=== PATIENT | female | born 1995 | race Caucasian/White ===

== ENCOUNTER 2017-02-04 19:56 | Emergency (ER) | payer OTHER ==
--- NOTE | ~2017-02-04 | CT4 ---
[facility] A Service of [facility] RADIOLOGY TEXT RESULTS PATIENT: TU PATINO LOCATION: SED : [birth year] UNIT #: [id number] AGE: [address]: MANGO WHYTE SEX: F ORDER DR: [id number] [place] [id number] E MR#: [id number] Acc #: [id number] NAME: TU PATINO. : 1995 SEX: F STUDY DATE/TIME: 02/04/2017 UNIT: SED ROOM: STUDY DESCRIPTION: CT Abd and Pelv Wo Cont Attending Physician: Mango Whyte Ordering Physician: Mnago Whyte Primary Care Physician: Primary Care Physician No MEDICAL IMAGING REPORT This report is preliminary unless electronic signature is present. EXAM Abdomen and pelvis CT 02/04 at 22:20 hours INDICATIONS Abnormal urinalysis results today with microscopic hematuria. Vaginal bleeding with low back and pelvic pain since 9 o'clock this morning. TECHNIQUE Axial noncontrast images were obtained through the abdomen and pelvis. Multiplanar reformats were obtained. Comparison is made with 07/10/2016. The CT exam was performed with one or more of the following radiation dose reduction techniques: automatic exposure control, adjustment of mA and/or kV according to patient size, and iterative reconstruction. FINDINGS Abdomen: Lung bases are clear. The gallbladder is contracted but otherwise unremarkable. No renal or ureteral stones are seen. There is no hydronephrosis. The unenhanced solid organs are normal. The unopacified GI tract is normal. No free fluid is seen. Pelvis: There are no lower ureteral stones. The bladder is normal. The appendix is surgically absent. The unopacified GI tract is otherwise normal. There are bilateral ovarian cyst. The one on the left measures 3.1 cm. The one on the right measures 2.0 cm. No free fluid. IMPRESSION: 1. Appendectomy, otherwise normal unopacified GI tract. 2. No renal or ureteral stones. No hydronephrosis. 3. Bilateral ovarian cysts, measuring 3.1 cm on the left and 2.0 cm on the right. [facility] A Service of [facility] RADIOLOGY TEXT RESULTS PATIENT: TU PATINO [place] [facility] [place] [birth year] UNIT #: [id number] AGE: [address]: MANGO WHYTE SEX: F ORDER DR: Dictated by... Maxim Fitzpatrick Jr., M.D. THIS IS AN ELECTRONICALLY VERIFIED REPORT Maxim Fitzpatrick Jr., M.D. at 02/05/2017 9:22 PM JOSR/salina TD: 02/05/2017 07:04 JOB #: [id number] MEDICAL IMAGING REPORT Page 1 of 1
[~2017-02-04 19:56] MED LIST: ADVIL200 M1; ALBUTEROL 0.5ML INH; IMITREX25 MG; KEFLEX500 MG PO; MED FOR ECZEMA; MOTRIN600 M2 PO; NO MEDICATIONS; PREDNISONE PO; PRILOSEC; STERAPRED5 MG/DOSE1; TYLENOL #3 PO; ZOFRAN; ZOFRANODT PO; ZOLOFT50 MG PO; ZYRTEC PO; ZYRTEC10 M1 PO
[2017-02-04] MEDS ORDERED: NO MEDICATIONS (20:13)
[2017-02-04 21:13] LABS: BASOPHIL# 0.1 X10e3 (0-0.3); BASOPHIL% 0.6 % (0-2.5); DIFF IND NO; EOSINOPHIL# 0.3 X10e3 (0-0.7); EOSINOPHIL% 3.1 % (0.0-7.0); HEMATOCRIT 44.1 % (35.0-45.0); LYMPHOCYTE# 2.7 X10e3 (1.0-3.5); LYMPHOCYTE% 30.2 % (17.0-45.0); MEAN CELL VOLUME 88.5 FL (83-96); MEAN CORPUSCULAR HGB CONC 33.9 g/dL (30-36); MONOCYTE# 0.8 X10e3 (0-1.0); MONOCYTE% 8.5 % (3.0-12.0); NEUTROPHIL# 5.2 X10e3 (1.5-7.1); NEUTROPHIL% 57.6 % (40-75); PLATELET COUNT 307 X10e3 (140-420); RED BLOOD COUNT 4.98 X10e (3.90-5.30); RED CELL DISTRIBUTION WIDTH 12.8 % (11.0-15.5)
[2017-02-04 21:25] LABS: URINE SOURCE CLEAN CATCH
[2017-02-04 21:27] LABS: URINE APPEARANCE SL CLOUDY; URINE BILIRUBIN NEG (NEG); URINE BLOOD 3+ (NEG); URINE COLOR RED; URINE GLUCOSE NEG (NORM); URINE KETONE NEG (NEG); URINE LEUKOCYTE ESTERASE NEG (NEG); URINE NITRATE NEG (NEG); URINE PROTEIN TRACE (NEG); URINE SPECIFIC GRAVITY 1.025 (1.003-1.035)
[2017-02-04 21:31] LABS: BUN/CREATININE RATIO 18.75; CALCIUM SERUM 9.2 mg/dL (8.4-10.2); CREATININE SERUM 0.8 mg/dL (0.6-1.4); GLOM FILT RATE Estimated 106.2 mL/min (>60); POTASSIUM 3.6 mmol/L (3.5-5.1)
[2017-02-04 21:32] LABS: MICRO INDICATED? YES
[2017-02-04 21:33] LABS: CULTURE INDICATED? NO; URINE BACTERIA NEG (NEG); URINE RBC INNUM /[HPF] (0-2)
[2017-02-04 21:34] LABS: URINE MUCUS PRESENT; URINE SQUAMOUS EPITHELIAL CELL MODERATE /[HPF]
[2017-02-07 23:39] LABS: CHLAMYDIA TRACH Not Detected (Not Detected); N GONOR Not Detected (Not Detected)
== END 2017-02-04 23:25 | disposition home or self-care (01) ==
LOC: SED 19:56
PROVIDERS: Nurse Practitioner
DX: N83.202 Unspecified ovarian cyst, left side (principal); N83.201 Unspecified ovarian cyst, right side; N93.8 Other specified abnormal uterine and vaginal bleeding; R19.7 Diarrhea, unspecified; J45.909 Unspecified asthma, uncomplicated; F32.9 Major depressive disorder, single episode, unspecified; F17.200 Nicotine dependence, unspecified, uncomplicated; Z90.49 Acquired absence of other specified parts of digestive tract; Z96.22 Myringotomy tube(s) status
CPT/HCPCS: 36415; 74176; 80048; 81003; 84703; 85025; 87491; 87591; 87808; 87905; 96374; 96375; 99284; J1885; J2405